=== PATIENT | male | born 1985 | race African-American/Black ===

== ENCOUNTER 2020-04-22 11:54 | Emergency (ER) | payer SELFPAY ==
[2020-04-22] MEDS ORDERED: HYDROCO/APAP1 TA9 PO (14:14)
[2020-04-22] MEDS ORDERED: KEFLEX500 M1 PO (14:14)
[2020-04-22 14:20] VITALS: BP 111/64
== END 2020-04-22 14:20 | disposition home or self-care (01) | DRG 502 ==
LOC: ED 11:54
PROC: 0JQG0ZZ Repair Right Lower Arm Subcutaneous Tissue and Fascia, Open Approach (ICD-10-PCS; principal; 2020-04-22)
PROC: 0HQDXZZ Repair Right Lower Arm Skin, External Approach (ICD-10-PCS; 2020-04-22)
DX: S56.921A Laceration of unspecified muscles, fascia and tendons at forearm level, right arm, initial encounter (principal); S51.811A Laceration without foreign body of right forearm, initial encounter; S61.511A Laceration without foreign body of right wrist, initial encounter; W22.8XXA Striking against or struck by other objects, initial encounter; Y93.89 Activity, other specified